=== PATIENT | female | born 1975 | race Caucasian/White ===

== ENCOUNTER → 2021-02-22 12:05 | Outpatient (CLI) | payer OTHER, SELFPAY ==
[2021-02-22] MEDS: COVID-19 VACC #1, MRNA(MOD) 100 MCG/0.5 ML VIAL IM (12:16)
== END ==
PROVIDERS: Visit Provider Internal Medicine
DX: Z23 Encounter for immunization (principal)
CPT/HCPCS: 0011A; 91301

== ENCOUNTER → 2021-03-22 12:05 | Outpatient (CLI) | payer OTHER, SELFPAY ==
[2021-03-22] MEDS: COVID-19 VACC #2, MRNA(MOD) 100 MCG/0.5 ML VIAL IM (12:15)
== END ==
PROVIDERS: Visit Provider Internal Medicine
DX: Z23 Encounter for immunization (principal)
CPT/HCPCS: 0012A; 91301